=== PATIENT | female | born 1960 | race Caucasian/White ===

== ENCOUNTER 2018-06-26 11:59 | Emergency (ER) | payer MEDICARE, MEDICAID ==
[2018-06-26] MEDS: ONDANSETRON 4MG/2ML VIAL (J2405) IV (12:40)
[2018-06-26] MEDS: NS 1,000 ML IV (12:41)
[2018-06-26] MEDS: KETOROLAC 30 MG/ML VIAL (J1885) IV (12:44)
[2018-06-26 12:56] LABS: BASO % 0.5 % (0.0-1.0); EOS # 0.1 10^3/uL (0.0-0.50); EOS % 1.7 % (0.0-3.0); HEMATOCRIT 39.3 % (36.0-47.0); HEMOGLOBIN 13.2 g/dl (12.0-15.5); IMMATURE GRANULOCYTE % 0.3 % (0-3.0); LYMPH # 1.2 10^3/uL (1.5-4.5); LYMPH % 21.4 % (24.0-44.0); MEAN CORPUSCULAR HEMOGLOBIN 32.7 pg (27.0-33.0); MEAN CORPUSCULAR HGB CONC 33.6 g/dl (32.0-36.5); MEAN CORPUSCULAR VOLUME 97.3 fl (80.0-96.0); MONO # 0.5 10^3/uL (0.0-0.8); MONO % 8.5 % (0.0-5.0); NEUTROPHILS # 3.9 10^3/uL (1.8-7.7); NEUTROPHILS % 67.6 % (36.0-66.0); PLATELET COUNT, AUTOMATED 192 10^3/uL (150-450); RED BLOOD COUNT 4.04 10^6/uL (4.00-5.40); RED CELL DISTRIBUTION WIDTH 14.4 % (11.5-14.5); WHITE BLOOD COUNT 5.8 10^3/uL (4.0-10.0)
[2018-06-26 13:09] LABS: INR 0.92; PROTHROMBIN TIME 12.4 SECONDS (12.1-14.4)
[2018-06-26 13:10] LABS: PARTIAL THROMBOPLASTIN TIME 31.5 SECONDS (25.4-37.6)
[2018-06-26 13:18] LABS: ALKALINE PHOSPHATASE 141 U/L (45-117); ALT/SGPT 24 U/L (12-78); ANION GAP 7 MEQ/L (8-16); AST/SGOT 21 U/L (7-37); BILIRUBIN,DIRECT < 0.1 MG/DL (0.0-0.2); BILIRUBIN,TOTAL 0.3 MG/DL (0.2-1.0); BLOOD UREA NITROGEN 6 MG/DL (7-18); CALCIUM LEVEL 8.7 MG/DL (8.5-10.1); CARBON DIOXIDE LEVEL 29 MEQ/L (21-32); CHLORIDE LEVEL 108 MEQ/L (98-107); CREATININE FOR GFR 0.46 MG/DL (0.55-1.30); GLOMERULAR FILTRATION RATE > 60.0 (>51); GLUCOSE, FASTING 96 MG/DL (70-100); LIPASE 76 U/L (73-393); POTASSIUM SERUM 4.2 MEQ/L (3.5-5.1); SODIUM LEVEL 144 MEQ/L (136-145); TOTAL PROTEIN 5.7 GM/DL (6.4-8.2)
[2018-06-26 13:25] LABS: AMORPHOUS SEDIMENT RFX SMALL (NEGATIVE); KETONE, URINE AUTO RFX NEGATIVE (NEGATIVE); LEUKOCYTE ESTERASE UR AUTO RFX NEGATIVE (NEGATIVE); MUCUS, URINE RFX SMALL (NEGATIVE); NITRITE, URINE AUTO RFX NEGATIVE (NEGATIVE); RBC, URINE AUTO RFX 2 /HPF (0-3); SPECIFIC GRAVITY UR AUTO RFX 1.009 (1.002-1.035); SQUAM EPITHELIAL CELL UR AURFX 0 /HPF (0-6); WBC, URINE AUTO RFX 2 /HPF (0-3)
[2018-06-26 14:53] LABS: ALBUMIN/GLOBULIN RATIO 1.11 (1.00-1.93)
[2018-06-26] MEDS: NICOTINE 14 MG/24 HR TRANSDERMAL TD (19:18)
[2018-06-26] MEDS: MORPHINE 4 MG/ML 1ML VIAL/SYRINGE (J2270) IV (19:23)
[2018-06-26 19:52] LABS: BEDSIDE GLUCOSE 67 MG/DL (70-105)
[2018-06-26] MEDS: DEXTROSE 50% 50 ML SYRINGE IV (20:13)
[2018-06-26 20:44] LABS: BEDSIDE GLUCOSE 110 MG/DL (70-105)
== END 2018-06-26 20:47 | disposition short-term general hospital (02) ==
LOC: M ED 11:59
DX: K80.10 Calculus of gallbladder with chronic cholecystitis without obstruction (principal); I81 Portal vein thrombosis; K83.8 Other specified diseases of biliary tract; R18.8 Other ascites; R93.5 Abnormal findings on diagnostic imaging of other abdominal regions, including retroperitoneum; E11.9 Type 2 diabetes mellitus without complications; E78.5 Hyperlipidemia, unspecified; K21.9 Gastro-esophageal reflux disease without esophagitis; G47.33 Obstructive sleep apnea (adult) (pediatric); F41.9 Anxiety disorder, unspecified; F32.9 Major depressive disorder, single episode, unspecified; Z87.19 Personal history of other diseases of the digestive system; F17.210 Nicotine dependence, cigarettes, uncomplicated; Z91.041 Radiographic dye allergy status; Z79.899 Other long term (current) drug therapy; Z79.4 Long term (current) use of insulin
CPT/HCPCS: J2270

== ENCOUNTER 2018-07-22 20:31 | Inpatient (IN) | payer MEDICARE ==
[2018-07-22] MEDS: MORPHINE 10 MG/ML 1ML VIAL (J2270) IV (21:31)
[2018-07-22 21:39] LABS: BASO % 0.5 % (0.0-1.0); EOS # 0.1 10^3/uL (0.0-0.50); EOS % 1.8 % (0.0-3.0); HEMATOCRIT 37.8 % (36.0-47.0); HEMOGLOBIN 12.5 g/dl (12.0-15.5); IMMATURE GRANULOCYTE % 0.2 % (0-3.0); LYMPH # 1.1 10^3/uL (1.5-4.5); LYMPH % 16.1 % (24.0-44.0); MEAN CORPUSCULAR HEMOGLOBIN 32.6 pg (27.0-33.0); MEAN CORPUSCULAR HGB CONC 33.1 g/dl (32.0-36.5); MEAN CORPUSCULAR VOLUME 98.7 fl (80.0-96.0); MONO # 0.7 10^3/uL (0.0-0.8); MONO % 10.9 % (0.0-5.0); NEUTROPHILS # 4.7 10^3/uL (1.8-7.7); NEUTROPHILS % 70.5 % (36.0-66.0); PLATELET COUNT, AUTOMATED 261 10^3/uL (150-450); RED BLOOD COUNT 3.83 10^6/uL (4.00-5.40); RED CELL DISTRIBUTION WIDTH 13.7 % (11.5-14.5); WHITE BLOOD COUNT 6.6 10^3/uL (4.0-10.0)
[2018-07-22 21:43] LABS: INR 0.92; PROTHROMBIN TIME 12.5 SECONDS (12.1-14.4)
[2018-07-22 21:44] LABS: PARTIAL THROMBOPLASTIN TIME 35.3 SECONDS (25.4-37.6)
[2018-07-22 21:58] LABS: ALBUMIN 2.7 GM/DL (3.2-5.2); ALBUMIN/GLOBULIN RATIO 0.93 (1.00-1.93); ALKALINE PHOSPHATASE 149 U/L (45-117); ALT/SGPT 21 U/L (12-78); ANION GAP 6 MEQ/L (8-16); AST/SGOT 20 U/L (7-37); BILIRUBIN,DIRECT < 0.1 MG/DL (0.0-0.2); BILIRUBIN,TOTAL 0.2 MG/DL (0.2-1.0); BLOOD UREA NITROGEN 10 MG/DL (7-18); CALCIUM LEVEL 8.3 MG/DL (8.5-10.1); CARBON DIOXIDE LEVEL 29 MEQ/L (21-32); CHLORIDE LEVEL 105 MEQ/L (98-107); CREATININE FOR GFR 0.61 MG/DL (0.55-1.30); GLOMERULAR FILTRATION RATE > 60.0 (>51); GLUCOSE, FASTING 188 MG/DL (70-100); LIPASE 34 U/L (73-393); POTASSIUM SERUM 3.9 MEQ/L (3.5-5.1); SODIUM LEVEL 140 MEQ/L (136-145); TOTAL PROTEIN 5.6 GM/DL (6.4-8.2)
[2018-07-22] MEDS: cefTRIAXone SOD 1 GM in D5W MINI-BAG PLUS 50 ML IV (23:36)
[2018-07-22 23:44] LABS: BF MONONUCLEAR CELL % 50.5 % (0-0); BF POLYMORPHONUCLEAR CELL % 49.5 % (0-0); PERITONEAL FL COLOR PALE YELLOW (COLORLESS); RBC BODY FLUID < 2 10^3/uL (<2); SOURCE, BODY FLUID PERITONEAL; WBC BODY FLUID 558 /uL (0-10)
[2018-07-22 23:45] LABS: APPEARANCE, BODY FLUID CLOUDY (CLEAR); BF DIFF IF INDICATED? YES (NO)
[2018-07-23 00:08] LABS: SOURCE, BODY FLUID TOT PROTEIN PERITONEAL; TOTAL PROTEIN, BODY FLUID 2.1 G/DL (NOT ESTABLISHED)
[2018-07-23] MEDS ORDERED: ISOVUE-370 76% 100ML VIAL (Q9967) As Ordered (00:36)
[2018-07-23] MEDS ORDERED: GLUCOSE 4 GM CHEW TABLET PO (01:30)
[2018-07-23] MEDS ORDERED: GLUCAGON FOR INJ 1 MG VIAL (J1610) SC (01:30)
[2018-07-23] MEDS ORDERED: DEXTROSE 50% 50 ML SYRINGE IV (01:30)
[2018-07-23] MEDS ORDERED: FLUTICASONE PROP 0.05% NASAL SPRAY 16 GM (FLONASE) (01:30)
[2018-07-23 01:50] LABS: SOURCE, BODY FLUID GLUCOSE PERITONEAL
[2018-07-23] MEDS ORDERED: ENOXAPARIN 60 MG/0.6 ML SYR (J1650) SC (02:00)
[2018-07-23] MEDS: PIPERACILLIN/TAZOBACTAM SOD 3.375 GM in D5W MINI-BAG PLUS 50 ML IV ×4 (03:23→20:32)
[2018-07-23] MEDS: VENLAFAXINE **XR** 75MG CAPSULE PO ×2 (03:25→20:32)
[2018-07-23] MEDS: ENOXAPARIN 60 MG/0.6 ML SYR (J1650) SC ×2 (03:26→15:05)
[2018-07-23] MEDS: ATORVASTATIN 20 MG TAB PO ×2 (03:28→20:33)
[2018-07-23] MEDS: ALPRAZolam 0.25 MG TAB PO ×3 (04:05→22:32)
[2018-07-23] MEDS: PERCOCET 5MG/325MG TAB PO ×4 (04:06→22:32)
[2018-07-23 06:24] LABS: BASO # 0.1 10^3/uL (0.0-0.2); BASO % 0.7 % (0.0-1.0); EOS # 0.2 10^3/uL (0.0-0.50); EOS % 3.1 % (0.0-3.0); HEMATOCRIT 35.5 % (36.0-47.0); HEMOGLOBIN 11.7 g/dl (12.0-15.5); IMMATURE GRANULOCYTE % 0.3 % (0-3.0); LYMPH # 1.5 10^3/uL (1.5-4.5); LYMPH % 19.9 % (24.0-44.0); MEAN CORPUSCULAR HEMOGLOBIN 31.3 pg (27.0-33.0); MEAN CORPUSCULAR VOLUME 94.9 fl (80.0-96.0); MONO # 0.9 10^3/uL (0.0-0.8); MONO % 11.9 % (0.0-5.0); NEUTROPHILS # 4.7 10^3/uL (1.8-7.7); NEUTROPHILS % 64.1 % (36.0-66.0); PLATELET COUNT, AUTOMATED 270 10^3/uL (150-450); RED BLOOD COUNT 3.74 10^6/uL (4.00-5.40); RED CELL DISTRIBUTION WIDTH 13.6 % (11.5-14.5); WHITE BLOOD COUNT 7.3 10^3/uL (4.0-10.0)
[2018-07-23 06:57] LABS: ALBUMIN 2.3 GM/DL (3.2-5.2); ALKALINE PHOSPHATASE 126 U/L (45-117); ALT/SGPT 17 U/L (12-78); ANION GAP 6 MEQ/L (8-16); AST/SGOT 17 U/L (7-37); BILIRUBIN,TOTAL 0.2 MG/DL (0.2-1.0); BLOOD UREA NITROGEN 9 MG/DL (7-18); CALCIUM LEVEL 7.9 MG/DL (8.5-10.1); CARBON DIOXIDE LEVEL 29 MEQ/L (21-32); CHLORIDE LEVEL 105 MEQ/L (98-107); CREATININE FOR GFR 0.51 MG/DL (0.55-1.30); GLOMERULAR FILTRATION RATE > 60.0 (>51); GLUCOSE, FASTING 75 MG/DL (70-100); POTASSIUM SERUM 3.9 MEQ/L (3.5-5.1); SODIUM LEVEL 140 MEQ/L (136-145); TOTAL PROTEIN 5.6 GM/DL (6.4-8.2)
[2018-07-23] MEDS: HumaLOG INSULIN (NovoLOG) PER UNIT SC ×4 (07:43→20:31)
[2018-07-23] MEDS: LEVEMIR (INSULIN DETEMIR) 1 UNITS/0.01ML SC (08:48)
[2018-07-23] MEDS: PANTOPRAZOLE 40MG TAB (PROTONIX) PO (08:48)
[2018-07-23] MEDS: CYANOCOBALAMIN 500 MCG TAB PO (08:48)
[2018-07-23] MEDS: VITAMIN D 1,000 INTERNATIONAL UNITS TABLET PO (08:48)
[2018-07-23] MEDS: GABAPENTIN 300 MG CAP PO ×4 (08:48→20:32)
[2018-07-23] MEDS: MULTIVITAMINS CHILDREN'S CHEWABLE TABLET PO (08:48)
[2018-07-23 11:37] LABS: BEDSIDE GLUCOSE 143 MG/DL (70-105)
[2018-07-23] MEDS: MORPHINE 4 MG/ML 1ML VIAL/SYRINGE (J2270) IV ×3 (11:37→20:33)
[2018-07-23] MEDS: BACLOFEN 10 MG TAB PO (12:24)
[2018-07-23] MEDS: MOVANTIK 25 MG PO (15:42)
[2018-07-23 16:39] LABS: BEDSIDE GLUCOSE 176 MG/DL (70-105)
[2018-07-23] MEDS: NICOTINE 21MG/24HR 1 EA TRANSDERMAL TD (16:56)
[2018-07-23 22:19] LABS: BEDSIDE GLUCOSE 79 MG/DL (70-105)
[2018-07-24] MEDS: MORPHINE 4 MG/ML 1ML VIAL/SYRINGE (J2270) IV ×5 (00:48→23:27)
[2018-07-24] MEDS: PIPERACILLIN/TAZOBACTAM SOD 3.375 GM in D5W MINI-BAG PLUS 50 ML IV ×4 (03:03→20:34)
[2018-07-24 05:36] LABS: BEDSIDE GLUCOSE 128 MG/DL (70-105)
[2018-07-24] MEDS: PERCOCET 5MG/325MG TAB PO ×4 (06:05→20:34)
[2018-07-24] MEDS: BACLOFEN 10 MG TAB PO ×2 (06:07→13:26)
[2018-07-24 06:34] LABS: BASO % 0.5 % (0.0-1.0); EOS # 0.2 10^3/uL (0.0-0.50); EOS % 3.1 % (0.0-3.0); HEMATOCRIT 36.1 % (36.0-47.0); HEMOGLOBIN 11.8 g/dl (12.0-15.5); IMMATURE GRANULOCYTE % 0.3 % (0-3.0); LYMPH # 1.4 10^3/uL (1.5-4.5); MEAN CORPUSCULAR HEMOGLOBIN 31.8 pg (27.0-33.0); MEAN CORPUSCULAR HGB CONC 32.7 g/dl (32.0-36.5); MEAN CORPUSCULAR VOLUME 97.3 fl (80.0-96.0); MONO # 0.8 10^3/uL (0.0-0.8); MONO % 13.3 % (0.0-5.0); NEUTROPHILS # 3.6 10^3/uL (1.8-7.7); NEUTROPHILS % 59.8 % (36.0-66.0); PLATELET COUNT, AUTOMATED 238 10^3/uL (150-450); RED BLOOD COUNT 3.71 10^6/uL (4.00-5.40); RED CELL DISTRIBUTION WIDTH 13.6 % (11.5-14.5); WHITE BLOOD COUNT 6.1 10^3/uL (4.0-10.0)
[2018-07-24] MEDS: HumaLOG INSULIN (NovoLOG) PER UNIT SC ×4 (07:46→20:33)
[2018-07-24] MEDS: MOVANTIK 25 MG PO (08:42)
[2018-07-24] MEDS: NICOTINE 21MG/24HR 1 EA TRANSDERMAL TD (08:42)
[2018-07-24] MEDS: VITAMIN D 1,000 INTERNATIONAL UNITS TABLET PO (08:43)
[2018-07-24] MEDS: MULTIVITAMINS CHILDREN'S CHEWABLE TABLET PO (08:43)
[2018-07-24] MEDS: GABAPENTIN 300 MG CAP PO ×4 (08:43→20:33)
[2018-07-24] MEDS: ALPRAZolam 0.25 MG TAB PO ×2 (08:43→20:33)
[2018-07-24] MEDS: CYANOCOBALAMIN 500 MCG TAB PO (08:43)
[2018-07-24] MEDS: PANTOPRAZOLE 40MG TAB (PROTONIX) PO (08:43)
[2018-07-24] MEDS: LEVEMIR (INSULIN DETEMIR) 1 UNITS/0.01ML SC (08:44)
[2018-07-24 11:47] LABS: BEDSIDE GLUCOSE 86 MG/DL (70-105)
[2018-07-24 16:58] LABS: BEDSIDE GLUCOSE 106 MG/DL (70-105)
[2018-07-24] MEDS: VENLAFAXINE **XR** 75MG CAPSULE PO (20:33)
[2018-07-24] MEDS: ATORVASTATIN 20 MG TAB PO (20:33)
[2018-07-24 21:54] LABS: BEDSIDE GLUCOSE 159 MG/DL (70-105)
[2018-07-25] MEDS: PERCOCET 5MG/325MG TAB PO ×3 (01:39→12:26)
[2018-07-25] MEDS: PIPERACILLIN/TAZOBACTAM SOD 3.375 GM in D5W MINI-BAG PLUS 50 ML IV ×2 (02:39→08:12)
[2018-07-25] MEDS: MORPHINE 4 MG/ML 1ML VIAL/SYRINGE (J2270) IV ×2 (05:44→11:01)
[2018-07-25 06:01] LABS: BASO % 0.4 % (0.0-1.0); EOS # 0.2 10^3/uL (0.0-0.50); EOS % 3.1 % (0.0-3.0); HEMATOCRIT 36.4 % (36.0-47.0); HEMOGLOBIN 11.8 g/dl (12.0-15.5); IMMATURE GRANULOCYTE % 0.1 % (0-3.0); LYMPH # 1.5 10^3/uL (1.5-4.5); LYMPH % 22.2 % (24.0-44.0); MEAN CORPUSCULAR HGB CONC 32.4 g/dl (32.0-36.5); MEAN CORPUSCULAR VOLUME 95.5 fl (80.0-96.0); MONO # 0.8 10^3/uL (0.0-0.8); MONO % 11.4 % (0.0-5.0); NEUTROPHILS # 4.3 10^3/uL (1.8-7.7); NEUTROPHILS % 62.8 % (36.0-66.0); PLATELET COUNT, AUTOMATED 245 10^3/uL (150-450); RED BLOOD COUNT 3.81 10^6/uL (4.00-5.40); RED CELL DISTRIBUTION WIDTH 13.6 % (11.5-14.5); WHITE BLOOD COUNT 6.9 10^3/uL (4.0-10.0)
[2018-07-25] MEDS: HumaLOG INSULIN (NovoLOG) PER UNIT SC ×2 (07:20→12:20)
[2018-07-25] MEDS: NICOTINE 21MG/24HR 1 EA TRANSDERMAL TD (08:11)
[2018-07-25] MEDS: LEVEMIR (INSULIN DETEMIR) 1 UNITS/0.01ML SC (08:12)
[2018-07-25] MEDS: MOVANTIK 25 MG PO (08:13)
[2018-07-25] MEDS: VITAMIN D 1,000 INTERNATIONAL UNITS TABLET PO (08:13)
[2018-07-25] MEDS: GABAPENTIN 300 MG CAP PO ×2 (08:13→12:25)
[2018-07-25] MEDS: MULTIVITAMINS CHILDREN'S CHEWABLE TABLET PO (08:13)
[2018-07-25] MEDS: CYANOCOBALAMIN 500 MCG TAB PO (08:13)
[2018-07-25] MEDS: PANTOPRAZOLE 40MG TAB (PROTONIX) PO (08:13)
[2018-07-25] MEDS: ALPRAZolam 0.25 MG TAB PO (08:13)
[2018-07-25] MEDS: fentaNYL 25 MCG/HR PATCH TOP (08:15)
[2018-07-25] MEDS: FENTANYL REMOVAL DOCUMENTATION MISC XX (08:16)
[2018-07-25 09:22] LABS: ANION GAP 5 MEQ/L (8-16); BLOOD UREA NITROGEN 11 MG/DL (7-18); CARBON DIOXIDE LEVEL 30 MEQ/L (21-32); CHLORIDE LEVEL 108 MEQ/L (98-107); CREATININE FOR GFR 0.47 MG/DL (0.55-1.30); GLOMERULAR FILTRATION RATE > 60.0 (>51); GLUCOSE, FASTING 79 MG/DL (70-100); POTASSIUM SERUM 3.8 MEQ/L (3.5-5.1); SODIUM LEVEL 143 MEQ/L (136-145)
[2018-07-25 12:12] LABS: BEDSIDE GLUCOSE 62 MG/DL (70-105)
[2018-07-25] MEDS: BACLOFEN 10 MG TAB PO (12:25)
[2018-07-27 14:25] LABS: BEDSIDE GLUCOSE 86 MG/DL (70-105)
== END 2018-07-25 12:59 | disposition home or self-care (01) | DRG 180 ==
LOC: M ED INP 07-23 01:30 → M ED 20:31 → M MSPAV 07-23 03:08
DX: C34.90 Malignant neoplasm of unspecified part of unspecified bronchus or lung (principal); I82.0 Budd-Chiari syndrome; K65.2 Spontaneous bacterial peritonitis; I81 Portal vein thrombosis; R18.0 Malignant ascites; E11.9 Type 2 diabetes mellitus without complications; E78.5 Hyperlipidemia, unspecified; M54.5 Low back pain; K21.9 Gastro-esophageal reflux disease without esophagitis; F41.9 Anxiety disorder, unspecified; F32.9 Major depressive disorder, single episode, unspecified; E55.9 Vitamin D deficiency, unspecified; F17.200 Nicotine dependence, unspecified, uncomplicated; J30.9 Allergic rhinitis, unspecified; E53.8 Deficiency of other specified B group vitamins; Z79.4 Long term (current) use of insulin; Z79.899 Other long term (current) drug therapy

== ENCOUNTER 2018-07-31 21:37 | Inpatient (IN) | payer MEDICARE ==
[2018-07-31 22:13] LABS: BASO % 0.3 % (0.0-1.0); EOS % 0.3 % (0.0-3.0); HEMATOCRIT 37.6 % (36.0-47.0); IMMATURE GRANULOCYTE % 0.4 % (0-3.0); LYMPH % 8.9 % (24.0-44.0); MEAN CORPUSCULAR HEMOGLOBIN 29.8 pg (27.0-33.0); MEAN CORPUSCULAR HGB CONC 31.9 g/dl (32.0-36.5); MEAN CORPUSCULAR VOLUME 93.3 fl (80.0-96.0); MONO # 1.2 10^3/uL (0.0-0.8); MONO % 10.4 % (0.0-5.0); NEUTROPHILS # 9.2 10^3/uL (1.8-7.7); NEUTROPHILS % 79.7 % (36.0-66.0); PLATELET COUNT, AUTOMATED 355 10^3/uL (150-450); RED BLOOD COUNT 4.03 10^6/uL (4.00-5.40); RED CELL DISTRIBUTION WIDTH 13.4 % (11.5-14.5); WHITE BLOOD COUNT 11.6 10^3/uL (4.0-10.0)
[2018-07-31 22:24] LABS: INR 1.11; PROTHROMBIN TIME 14.4 SECONDS (12.1-14.4)
[2018-07-31 22:25] LABS: PARTIAL THROMBOPLASTIN TIME 41.5 SECONDS (25.4-37.6)
[2018-07-31 22:59] LABS: ALBUMIN/GLOBULIN RATIO 0.47 (1.00-1.93); ALKALINE PHOSPHATASE 148 U/L (45-117); ALT/SGPT 13 U/L (12-78); ANION GAP 14 MEQ/L (8-16); AST/SGOT 20 U/L (7-37); BILIRUBIN,DIRECT < 0.1 MG/DL (0.0-0.2); BILIRUBIN,TOTAL 0.4 MG/DL (0.2-1.0); BLOOD UREA NITROGEN 12 MG/DL (7-18); CALCIUM LEVEL 8.3 MG/DL (8.5-10.1); CARBON DIOXIDE LEVEL 23 MEQ/L (21-32); CHLORIDE LEVEL 101 MEQ/L (98-107); GLOMERULAR FILTRATION RATE > 60.0 (>51); GLUCOSE, FASTING 63 MG/DL (70-100); POTASSIUM SERUM 3.8 MEQ/L (3.5-5.1); SODIUM LEVEL 138 MEQ/L (136-145); TOTAL PROTEIN 6.3 GM/DL (6.4-8.2)
[2018-08-01] MEDS ORDERED: FLUTICASONE PROP 0.05% NASAL SPRAY 16 GM (FLONASE) (02:00)
[2018-08-01] MEDS ORDERED: ALPRAZolam 0.25 MG TAB PO (02:00)
[2018-08-01] MEDS ORDERED: GASTROGRAFIN SOLUTION 30ML (Q9963) As Ordered (02:13)
[2018-08-01] MEDS: GASTROGRAFIN SOLUTION 30ML (Q9963) PO ×2 (02:17→07:50)
[2018-08-01] MEDS: MORPHINE 4 MG/ML 1ML VIAL/SYRINGE (J2270) IV ×3 (02:40→22:29)
[2018-08-01] MEDS: NS 1,000 ML IV ×2 (02:43→04:55)
[2018-08-01] MEDS ORDERED: DEXTROSE 50% 50 ML SYRINGE IV (02:45)
[2018-08-01] MEDS ORDERED: GLUCAGON FOR INJ 1 MG VIAL (J1610) SC (02:45)
[2018-08-01] MEDS: ONDANSETRON 4MG/2ML VIAL (J2405) IV ×2 (04:58→17:07)
[2018-08-01] MEDS: PANTOPRAZOLE 40MG INJ (PROTONIX) (C9113) IV (06:11)
[2018-08-01 06:53] LABS: BEDSIDE GLUCOSE 50 MG/DL (70-105)
[2018-08-01 07:12] LABS: BEDSIDE GLUCOSE 49 MG/DL (70-105)
[2018-08-01] MEDS: GLUCOSE 4 GM CHEW TABLET PO (07:19)
[2018-08-01 07:48] LABS: BEDSIDE GLUCOSE 135 MG/DL (70-105)
[2018-08-01] MEDS: HumaLOG INSULIN (NovoLOG) PER UNIT SC ×4 (07:51→20:21)
[2018-08-01 08:17] LABS: HEMATOCRIT 38.1 % (36.0-47.0); HEMOGLOBIN 12.3 g/dl (12.0-15.5); MEAN CORPUSCULAR HEMOGLOBIN 30.8 pg (27.0-33.0); MEAN CORPUSCULAR HGB CONC 32.3 g/dl (32.0-36.5); MEAN CORPUSCULAR VOLUME 95.5 fl (80.0-96.0); PLATELET COUNT, AUTOMATED 369 10^3/uL (150-450); RED BLOOD COUNT 3.99 10^6/uL (4.00-5.40); RED CELL DISTRIBUTION WIDTH 13.4 % (11.5-14.5); WHITE BLOOD COUNT 10.7 10^3/uL (4.0-10.0)
[2018-08-01 08:38] LABS: ANION GAP 12 MEQ/L (8-16); BLOOD UREA NITROGEN 10 MG/DL (7-18); CALCIUM LEVEL 8.4 MG/DL (8.5-10.1); CARBON DIOXIDE LEVEL 25 MEQ/L (21-32); CHLORIDE LEVEL 102 MEQ/L (98-107); CREATININE FOR GFR 0.46 MG/DL (0.55-1.30); GLOMERULAR FILTRATION RATE > 60.0 (>51); GLUCOSE, FASTING 145 MG/DL (70-100); SODIUM LEVEL 139 MEQ/L (136-145)
[2018-08-01] MEDS: PERCOCET 5MG/325MG TAB PO ×3 (08:53→20:22)
[2018-08-01] MEDS: VITAMIN D 1,000 INTERNATIONAL UNITS TABLET PO ×2 (08:53→09:00)
[2018-08-01] MEDS: GABAPENTIN 300 MG CAP PO ×4 (08:53→20:21)
[2018-08-01] MEDS: CYANOCOBALAMIN 500 MCG TAB PO ×2 (08:54→09:00)
[2018-08-01 11:21] LABS: BEDSIDE GLUCOSE 142 MG/DL (70-105)
[2018-08-01 14:51] LABS: RBC BODY FLUID < 2 10^3/uL (<2); WBC BODY FLUID 2102 /uL (0-10)
[2018-08-01 14:53] LABS: APPEARANCE, BODY FLUID HAZY (CLEAR); ASCITES FL COLOR PALE YELLOW (COLORLESS); BF DIFF IF INDICATED? YES (NO); SOURCE, BODY FLUID ASCITES
[2018-08-01 16:25] LABS: BEDSIDE GLUCOSE 142 MG/DL (70-105)
[2018-08-01] MEDS: BACLOFEN 10 MG TAB PO (17:06)
[2018-08-01 19:49] LABS: BEDSIDE GLUCOSE 136 MG/DL (70-105)
[2018-08-01] MEDS: VENLAFAXINE **XR** 75MG CAPSULE PO (20:21)
[2018-08-01] MEDS: ATORVASTATIN 20 MG TAB PO (20:22)
[2018-08-02] MEDS: BACLOFEN 10 MG TAB PO (00:17)
[2018-08-02] MEDS: PERCOCET 5MG/325MG TAB PO ×2 (00:18→05:35)
[2018-08-02] MEDS: MORPHINE 4 MG/ML 1ML VIAL/SYRINGE (J2270) IV ×2 (02:53→11:25)
[2018-08-02] MEDS: PANTOPRAZOLE 40MG INJ (PROTONIX) (C9113) IV (05:35)
[2018-08-02 06:10] LABS: HEMATOCRIT 34.3 % (36.0-47.0); HEMOGLOBIN 11.5 g/dl (12.0-15.5); MEAN CORPUSCULAR HEMOGLOBIN 31.2 pg (27.0-33.0); MEAN CORPUSCULAR HGB CONC 33.5 g/dl (32.0-36.5); PLATELET COUNT, AUTOMATED 324 10^3/uL (150-450); RED BLOOD COUNT 3.69 10^6/uL (4.00-5.40); RED CELL DISTRIBUTION WIDTH 13.3 % (11.5-14.5); WHITE BLOOD COUNT 8.8 10^3/uL (4.0-10.0)
[2018-08-02 06:31] LABS: BLOOD UREA NITROGEN 9 MG/DL (7-18); CREATININE FOR GFR 0.36 MG/DL (0.55-1.30); GLUCOSE, FASTING 112 MG/DL (70-100)
[2018-08-02 06:32] LABS: ANION GAP 8 MEQ/L (8-16); CALCIUM LEVEL 7.6 MG/DL (8.5-10.1); CARBON DIOXIDE LEVEL 27 MEQ/L (21-32); CHLORIDE LEVEL 103 MEQ/L (98-107); GLOMERULAR FILTRATION RATE > 60.0 (>51); POTASSIUM SERUM 3.8 MEQ/L (3.5-5.1); SODIUM LEVEL 138 MEQ/L (136-145)
[2018-08-02] MEDS: HumaLOG INSULIN (NovoLOG) PER UNIT SC ×2 (08:46→11:42)
[2018-08-02] MEDS: CYANOCOBALAMIN 500 MCG TAB PO (08:47)
[2018-08-02] MEDS: GABAPENTIN 300 MG CAP PO (08:47)
[2018-08-02] MEDS: VITAMIN D 1,000 INTERNATIONAL UNITS TABLET PO (08:47)
[2018-08-02] MEDS: fentaNYL 12 MCG/HR PATCH TOP (08:49)
[2018-08-02] MEDS: fentaNYL 25 MCG/HR PATCH TOP (08:49)
[2018-08-02] MEDS ORDERED: FENTANYL REMOVAL DOCUMENTATION MISC XX ×2 (09:00)
[2018-08-02 11:29] LABS: BEDSIDE GLUCOSE 85 MG/DL (70-105)
== END 2018-08-02 11:59 | disposition home or self-care (01) | DRG 180 ==
LOC: M ED INP 08-01 01:53 → M MSPAV 08-01 04:31 → M ED 21:37
PROC: 0W9G3ZZ Drainage of Peritoneal Cavity, Percutaneous Approach (ICD-10-PCS; principal; 2018-08-01)
DX: C34.91 Malignant neoplasm of unspecified part of right bronchus or lung (principal); I81 Portal vein thrombosis; R18.0 Malignant ascites; E11.9 Type 2 diabetes mellitus without complications; E78.5 Hyperlipidemia, unspecified; M54.5 Low back pain; F41.9 Anxiety disorder, unspecified; K21.9 Gastro-esophageal reflux disease without esophagitis; E53.8 Deficiency of other specified B group vitamins; E55.9 Vitamin D deficiency, unspecified; Z87.891 Personal history of nicotine dependence; Z79.891 Long term (current) use of opiate analgesic; Z79.899 Other long term (current) drug therapy; Z79.4 Long term (current) use of insulin